=== PATIENT | female | born 1955 | race Two or more races ===

== ENCOUNTER 2020-10-02 08:24 | Outpatient (CLI) | payer OTHER | END 2020-10-02 23:59 | disposition home or self-care (01) | LOC: LAB 08:24 | PROVIDERS: ATTEND Specialist | DX: Z01.812 Encounter for preprocedural laboratory examination (principal); Z20.822 Contact with and (suspected) exposure to COVID-19 | CPT/HCPCS: C9803; U0003 ==

== ENCOUNTER 2020-10-08 05:16 | Inpatient (IN) | payer OTHER ==
[~2020-10-08] VITALS: Ht 157.5 cm; Wt 122.5 kg
[2020-10-08 06:00] VITALS: BP 140/66
[2020-10-08] MEDS ORDERED: ANESTHESIA TRAY IN PYXIS 1 EA TRAY MC ONE (06:03)
[2020-10-08] MEDS ORDERED: BUPIVACAINE 0.25% 75 MG/30 ML VIAL ONE (06:03)
[2020-10-08] MEDS ORDERED: BACITRACIN 50000 UNITS/VIAL ONE (06:04)
--- NOTE | 2020-10-08 06:20 | NUR ---
MS/RN NOTES PATIENT TRANSFERRED TO OR FOR RIGHT KNEE Sx. NO INJURIES DURING TRANSPORT.
[2020-10-08] MEDS ORDERED: FENTANYL PF 100MCG/2ML AMPUL ONE ×3 (06:37→08:55)
[2020-10-08] MEDS ORDERED: MIDAZOLAM HCL 2 MG/2ML VIAL ONE (06:37)
[2020-10-08] MEDS ORDERED: ROCURONIUM BROMIDE 50 MG/5 ML ONE (06:37)
--- NOTE | 2020-10-08 06:49 | NUR ---
MS/RN OPENING NOTES PATIENT ARRIVED TO UNIT FOR DAY Sx AT 0550 HRS. PATIENT AMBULATE BY SELF WITH WALKER. PATIENT IS ALERT AND ORIENTED X 4 THAI SPEAKING. PATIENTS BREATHING IS EVEN AND UNLABORED. NO SIGNS OF SOB OR RESPIRATORY DISTRESS NOTED. PATIENT STABLE ON ROOM AIR. NO PAIN AT THIS TIME. PATIENT KNOWS SHE IS GETTING RIGHT KNEE Sx. PATIENT SIGNED ALL CONSENT FORMS. PATIENT HAS BELONGINGS WITH HER. IV ACCESS STARTED ON LEFT FA 20G, INTACT FLUSHING WELL. SAFETY MEASURES ARE IN PLACE, BED IS LOCKED AND PLACED IN THE LOW POSITION, CALL LIGHT IS WITHIN REACH. OR ARRIVED TO TRANSFER PATIENT.
[2020-10-08] MEDS ORDERED: TRANEXAMIC ACID 3,000 MG in SODIUM CHLORIDE IRRIG SOLUTION 70 ML IR ONE (07:00)
[2020-10-08] MEDS ORDERED: BUPIVACAINE 0.5 % PF 150 MG/30 ML VIAL ONE (07:19)
--- NOTE | 2020-10-08 07:52 | NUR ---
MS RN OPENING NOTE PATIENT IS CURRENTLY IN SURGERY
[2020-10-08] MEDS ORDERED: HYDROMORPHONE 1 MG/1 ML DISP.SYRIN ONE ×2 (09:43→10:08)
--- NOTE | 2020-10-08 10:15 | NUR ---
RN NOTES INFORMED BY ODILIA, OR NURSE, THAT PATIENT IS CURRENTLY IN RECOVERY.
[2020-10-08 11:00] VITALS: BP 117/67
[2020-10-08] MEDS ORDERED: HYDROMORPHONE MDV 30 MG in IV NS 0.9% 15 ML, PCA TOTAL VOLUME 1 BAG IV PRN ×6 (11:00→12:30)
[2020-10-08] MEDS ORDERED: ACETAMINOPHEN 325 MG TABLET PO PRN ×2 (11:00)
[2020-10-08] MEDS ORDERED: SENNOSIDES 8.6 MG TABLET PO PRN (11:00)
[2020-10-08] MEDS ORDERED: NALOXONE HCL 0.4 MG/ML AMPUL IV PRN (11:00)
[2020-10-08] MEDS ORDERED: diphenhydrAMINE HCL 25 MG CAPSULE PO PRN (11:00)
[2020-10-08] MEDS ORDERED: MAG HYDROX/AL HYDROX/SIMETH 30 ML UDC PO PRN (11:00)
[2020-10-08] MEDS ORDERED: BISACODYL SUPP (10 MG) 10 MG/SUPP.RECT SUPP.RECT RC PRN (11:00)
[2020-10-08] MEDS ORDERED: ZOLPIDEM TARTRATE 5 MG TABLET PO PRN (11:00)
[2020-10-08] MEDS ORDERED: MENTHOL/CETYLPYRD (CEPACOL) 1 LOZ LOZENGE PO PRN (11:00)
[2020-10-08] MEDS ORDERED: CLONIDINE HCL 0.1 MG TABLET PO PRN (11:00)
[2020-10-08] MEDS: oxyCODONE IR immediate release 5 MG PO PRN ×2 (11:26→15:24)
[2020-10-08] MEDS: IV D5/0.45 NACL 1,000 ML IV PRN (11:27)
[2020-10-08] MEDS ORDERED: BUME2TAB7 PO (11:35)
[2020-10-08] MEDS ORDERED: BUME1TAB8 PO (11:35)
[2020-10-08] MEDS ORDERED: METO25TA20 PO (11:35)
[2020-10-08] MEDS ORDERED: ATOR40TA PO (11:35)
[2020-10-08] MEDS ORDERED: PANT20TA2 PO (11:35)
[2020-10-08] MEDS ORDERED: POTA20TA10 PO (11:35)
[2020-10-08] MEDS ORDERED: LEVO200T8 PO (11:35)
[2020-10-08 11:58] LABS: HEMOGLOBIN 12.4 g/dL (11.5-14.8)
--- NOTE | 2020-10-08 11:58 | NUR ---
RN NOTES DR. PABLO CALLED AND INFORMED ABOUT PATIENT'S CURRENT STATUS; WILL BE HERE TO SEE PATIENT LATER.
[2020-10-08] MEDS ORDERED: KEY,NONCONTROL,TO KEEP IN PYXI 1 EA MC ONE (12:43)
[2020-10-08] MEDS ORDERED: LEVOTHYROXINE SODIUM 100 MCG TABLET PO SCH (13:00)
[2020-10-08] MEDS: HYDROMORPHONE 1 MG/1 ML DISP.SYRIN SQ PRN (13:26)
--- NOTE | 2020-10-08 15:53 | NUR ---
RN NOTES KAL MIDLINE INSERTED BY MITUL KAHN; PROCEDURE TOLERATED WELL BY PATIENT.
[2020-10-08] MEDS: ANCEF 1 GM/50 ML D5W IV SCH ×4 (15:54→22:36)
[2020-10-08 16:00] VITALS: BP 113/75
--- NOTE | 2020-10-08 16:13 | NUR ---
RN NOTES RECEIVED ORDER FROM DR. PABLO TO START HYDROMORPHONE CONCRETE PAVING SUPERVISOR W/ FOLLOWING PARAMETERS: CONCRETE PAVING SUPERVISOR DOSE 0.3MG, LOCKOUT INTERVAL 15MINS, 4-HOUR LIMIT OF 6MG. INSTRUCTIONS AND EDUCATION REGARDING PURPOSE OF CONCRETE PAVING SUPERVISOR PUMP AND USE OF CONCRETE PAVING SUPERVISOR BUTTON PROVIDED TO PATIENT W/ REINFORCEMENT PROVIDED BY SLOVAK-SPEAKING STAFF CYNTHIA MORRISSEY. PATIENT VERBALIZED UNDERSTANDING OF 15-MIN LOCKOUT AND 4-HOUR DOSE LIMIT AND GAVE RETURN DEMONSTRATION OF CONCRETE PAVING SUPERVISOR BUTTON USE. WILL CONTINUE TO MONITOR.
--- NOTE | 2020-10-08 16:31 | NUR ---
RN NOTES PRINTING AND STAMPING SUPERVISOR INITIATED; WILL CONTINUE TO MONITOR.
[2020-10-08] MEDS ORDERED: METOPROLOL TARTRATE 25 MG TABLET PO SCH (17:00)
[2020-10-08] MEDS: POTASSIUM CHLORIDE 20 MEQ TAB.PRT.SR PO SCH (17:34)
[2020-10-08] MEDS: DOCUSATE SODIUM 100 MG CAPSULE PO SCH (17:36)
--- NOTE | 2020-10-08 18:55 | NUR ---
MS/RN CLOSING NOTES PATIENT ARRIVED TO UNIT FOR DAY Sx AT 0550 HRS. PATIENT IS ALERT AND ORIENTED X 4 UPPER SORBIAN SPEAKING. PATIENTS BREATHING IS EVEN AND UNLABORED. NO SIGNS OF SOB OR RESPIRATORY DISTRESS NOTED. PATIENT STABLE ON ROOM AIR. NO PAIN AT THIS TIME. PATIENT QUARTER FOLDER MACHINE SETUP FOR PAIN MANAGEMENT. INCENTIVE SPIROMETRY ENCOURAGED SAFETY MEASURES ARE IN PLACE, BED IS LOCKED AND PLACED IN THE LOW POSITION, CALL LIGHT IS WITHIN REACH.
[2020-10-08 20:00] VITALS: BP 130/63
--- NOTE | 2020-10-08 20:00 | NUR ---
MSRN FULLY AWAKE, ON THE PHONE WITH SON, OMANI SPEAKING, SPOKE TO SON, PLAN OF CARE AND MEDICATION REGIMEN DISCUSS TO SON TRANSLATED IN OMANI TO PT. PRESENT IVF INFUSING WELL, WITH DELIVERY TRUCK DRIVER. SURGICAL SITE DRESSING D/I. REMINDED TO CALL STAFF FOR ANY ASSISTANCE OR FURTHER DISCOMFORTS. HAVE SON TRANSLATE IN OMANI IMPORTANCE NEED TO HAVE PHYSICAL THERAPY TOMORROW WHICH PATIENT AGREED. NO OTHER NEEDS AT THIS TIME, CLOSELY WATCHED.
[2020-10-08] MEDS: METOPROLOL TARTRATE 25 MG TABLET PO SCH (22:36)
[2020-10-08] MEDS: PANTOPRAZOLE 40 MG TABLET.DR PO SCH (22:39)
--- NOTE | 2020-10-08 23:20 | NUR ---
MSRN RIGHT LEG REPOSITIONED PER PATIENTS' COMFORT. HEELS OFFLOAD MATTRESS. NO OTHER NEEDS MADE, CONTINUED
[2020-10-09] MEDS: IV D5/0.45 NACL 1,000 ML IV PRN (02:50)
--- NOTE | 2020-10-09 03:00 | NUR ---
MSRN AWAKENED, PRESENT IVF INFUSING WELL. OFFERED OXY IR. PER TRANSLATION, PATIENT WILL TAKE OXY PRIOR TO PHYSICAL THERAPY. PAINFUL ONLY WHEN MOVING, OTHERWISE MARRIAGE COUNSELOR CONTINUED.
--- NOTE | 2020-10-09 06:50 | NUR ---
MSRN REMAINS UNCHANGED.
--- NOTE | 2020-10-09 07:50 | NUR ---
MS/RN CLOSING NOTES PATIENT IS ALERT AND ORIENTED X 4 SLOVENIAN SPEAKING. PATIENTS BREATHING IS EVEN AND UNLABORED. NO SIGNS OF SOB OR RESPIRATORY DISTRESS NOTED. PATIENT STABLE ON ROOM AIR. NO PAIN AT THIS TIME. PATIENT PLASTER FORM MAKER MACHINE SETUP FOR PAIN MANAGEMENT. INCENTIVE SPIROMETRY ENCOURAGED SAFETY MEASURES ARE IN PLACE, BED IS LOCKED AND PLACED IN THE LOW POSITION, CALL LIGHT IS WITHIN REACH. Addendum: 10/09/20 at 0751 by MILADYS EISENBERG RN MSRN *OPENING*
[2020-10-09] MEDS: oxyCODONE IR immediate release 5 MG PO PRN (08:23)
--- NOTE | 2020-10-09 08:24 | NUR ---
MSRN NOTES GAVE PATIENT OXYCODONE HCL FOR PAIN 10MG PRIOR TO PHYSICAL THERAPY
[2020-10-09] MEDS: ASPIRIN 325 MG TABLET PO SCH (09:32)
[2020-10-09] MEDS: POTASSIUM CHLORIDE 20 MEQ TAB.PRT.SR PO SCH ×2 (09:33→16:18)
[2020-10-09] MEDS: DOCUSATE SODIUM 100 MG CAPSULE PO SCH ×2 (09:33→16:18)
[2020-10-09] MEDS: METOPROLOL TARTRATE 25 MG TABLET PO SCH ×2 (09:34→21:00)
[2020-10-09] MEDS: BUMETANIDE (1 MG) 1 MG TABLET PO SCH ×2 (09:34→12:08)
[2020-10-09] MEDS: ATORVASTATIN 40 MG TABLET PO SCH (09:34)
[2020-10-09] MEDS: LEVOTHYROXINE SODIUM 112 MCG TABLET PO SCH (09:35)
--- NOTE | 2020-10-09 16:30 | NUR ---
SS Consult: SS Consult requested for Safe discharge planning. The pt. is a 65-year old female at [facility] for knee surgery, per pt. MALINA met with pt. bedside. The pt. is A&O X 4 and appears well-groomed. The pt.s thought process sis WNL and made appropriate eye contact. The pt. has skin discoloration and dry skin in both arms. The patient stated she required knew surgery following a fall at her place of employment, [employer] on 03/16/2019. Per pt. she currently lives alone at [address] [place] [address] . Per pt. she has a caregiver, Roxana Connolly [phone] who cares for her 5 x/week from 9am 2 pm. Per pt. she receives $750 from SSDI and $230 from supplemental SS. Pt. denies Hx. of drug or alcohol use. Pt. denies Hx. of mental health illness. Pt. denies current SI/HI and denies hallucinations. Case Management to follow up with D/C planning (possible D/C to ARU). MALINA provided pt. with the following Senior resources and patient was receptive: ABUSE PREVENTION: ELDER ABUSE HOTLINE (16/02) ADULT PROTECTIVE SERVICES HOTLINE LONG-TERM CARE [facility] Region AREA ON AGING (HOTLINE) ADULT DAY HEALTH CARE CARE CENTERS: Private pay or [facility] funded adult day care [place] [facility] [place] Adult [place] , [facility] , [facility] , [facility] Care , [facility] Adult [facility] Health Care , [facility] , [place] ONE [facility] , [place] Jyoti [facility] Adult [place] , [place] ALZHEIMERS DISEASE/DEMENTIA: Alzheimers Association [facility]pl[facility] Chapter www.alz.org/[facility] Department of Aging www.lacity.org Family Caregiver Gay www.caregiver.org [place] Caregiver Resources Center/Family Support www.losangenew [facility].org CANCER RESOURCES: Citizen Of [place] Cancer Society www.cancer.org Cancer Support Community www.CancerSupportVvsb.org: CancerCare www.cancercare.org [facility] Cancer Support [place] www.[facility].org CRITICAL ACCESS HOSPITAL HEALTH ASSOCIATIONS: AARP www.aarp.org ALS Association (ask for Karen) www.als.org Citizen Of [place] Diabetes Association www.diabetes.org Citizen Of [place] Heart Association www.heart.org Citizen Of [place] Lung Association www.lungusa.org Citizen Of [place] Parkinson Disease Association www.apdaparkinson.org Citizen Of [place] Haughton , www.redcross.org Arthritis Foundation www.arthritis.org Crohns & Colitis Foundation of Citizen Of [place] www.ccfa.org/chapters/meng National Multiple Sclerosis Society www.nationalmssociety.org Myasthenia Gravis Foundation www.myasthenia-ca.org National Stroke Association www.stroke.org CONSERVATORSHIP & GUARDIANSHIP: AARP [place] Legal Services Center for Health Care Rights [place] Information and Referral Biological Photographer [facility], [place] [facility]: [facility] Bar Referral Service [facility] Neighborhood Legal Services Office of the Public Guardian [place] GRIEF AND BEREAVEMENT RESOURCES: [facility] [place] , [facility] THE [facility] , [facility] , [place] HELP AT HOME CAREGIVER SUPPORT: In Home Support Services (Must have Medi-Calixto to be eligible) *Ask for a list of agencies that provide services to assist with care in the home. Local Senior Centers also have listings of care providers. HOME SAFETY MODIFICATIONS AND EQUIPMENT: Senior centers have additional referrals. [place] The [employer] and Community Investment Dept. Handyworker Program (low income) or Visit http://hcidla.evergreenhealthity.org/glx-pekued-on for more information National Seating and Mobility and/or ; Forever Active www.foreveractivemed.[employer] Stay Home Safe www.Stayhomesafe.com LIFE ALERT RESPONSE SYSTEM: [facility] Lifeline Services 390-157-6332 www. LifeSocialDiabetesys.[employer] Life Alert 797-800-1054 www.lifealert.[employer] Life Station 310-140-0348 www.lifestation.com Safe Return 389-412-7551 www.alz.or/safereturn Cell Phones for Seniors www.dianboom MEALS AND FOOD PROGRAMS: [employer] Meals on Wheels [phone] [place] Meals on Wheels [phone] [facility] [phone] [place] to the Homebound [phone] [place] to the Homebound [phone] [place] to the Homebound [phone] [facility] to the Homebound [phone] [facility] Center[facility] [phone] [facility] [phone] ONE Generation [phone] [facility] [phone] [facility] [phone] Meals on Wheels [phone] For all ages: $6.85/ meal w side. Delivered M-F from 10 am-1pm. Application and payment is done over the phone. Frozen meals available for weekends. Emergency Food [facility] [phone] [facility] Mortgage Underwriter [phone] [facility] [phone] [facility]- [facility] bag lunches [phone] [facility] [phone] MEAL/GROCERY DELIVERY PROGRAMS: [facility] Gourmet Meals [phone]- [facility] [phone]- [facility] Magic Kitchen [phone] Moms Meals [phone] (ask Lopez for Discount Select grocery stores may provide delivery. MEDICAL INSURANCE SUPPORT SERVICES: Center for Health Care Rights [phone] Health Insurance Counseling/Advocacy Programs (HICAP)-Must have Medicare. Offers counseling for Medi-Calixto eligibility [phone] Department of Public Mortgage Underwriter [phone] www.[facility].ca.gov Medicare 757-864-7647 www.socialsecurity.org Social Security [phone] SENIOR ACTIVITY PROGRAMS: *Contact a local senior center, adult school, recreation facility or community college for education, fitness, recreation, and social programs. Aquatic Therapy and Adapted Exercise programs through [facility] [phone] [facility] at [facility] [phone] www.[facility]/encore H2U- Senior Friends [phone] [place] Senior Programs [phone] www.oasisnet.org Suddenly 65 www.qhmffaan19.com SENIOR CENTERS: [facility] [phone] [facility] Hospital[facility] [phone] [facility] [phone] [facility] HospitalJulio Rippey [phone] [facility] [phone] [facility] [phone] [facility] [phone] [facility] [phone] One GenerationMoisés [facility] [phone] [facility] [phone] [facility] [phone] [facility] [phone] [facility] [phone] TRANSPORTATION: Local [facility] may have applications for transportation programs and additional resources. ACCESS Services [phone] Transportation for seniors and disabled persons 7 days a week requiring 254 hr. advance reservation. Must apply and register for program zee eligible. SiVerion [phone] or [phone] Transportation for seniors and persons with ADA card/metro disabled card in the [facility]. M-F only. Must register for services. ONE GENERATION [phone] Serves 65 years + in conjunction with SoupQubes program. Must be registered with both programs. A to B Transport [phone] Provides wheelchair/gurney van service. Adult Medical Transport [phone] Accepts [facility] with prior authorization. [facility] [phone] Provides wheelchair Transport. [facility] Wide Transportation [phone] [facility] [phone] Gurney Transport. [facility] Transportation [phone] wheelchair & gurney transport D Transportation [phone] wheelchair & gurney transport [place] Non-Emergency Transport [phone] wheelchair & gurney transport [facility] [phone] Short Term Transportation primarily for adults with disabilities on social security income. Nominal fee may apply and a reservation is required. MagForce [phone] or [phone] SocialDiabetes [phone] [place], [place] [phone] For additional programs & services
--- NOTE | 2020-10-09 18:53 | NUR ---
MS/RN CLOSING NOTES PATIENT IS ALERT AND ORIENTED X 4 ICELANDIC SPEAKING. PATIENTS BREATHING IS EVEN AND UNLABORED. NO SIGNS OF SOB OR RESPIRATORY DISTRESS NOTED. PATIENT STABLE ON ROOM AIR. NO PAIN AT THIS TIME. PATIENT ELECTROMECHANICAL INSPECTOR MACHINE SETUP FOR PAIN MANAGEMENT. INCENTIVE SPIROMETRY ENCOURAGED SAFETY MEASURES ARE IN PLACE, BED IS LOCKED AND PLACED IN THE LOW POSITION, CALL LIGHT IS WITHIN REACH.
--- NOTE | 2020-10-09 19:40 | NUR ---
MSRN SEEN BY DR. ALVARADO, PA FOR DR. PATTERSON. DRESSING TO BE CHANGE TOMORROW BY PA. PATIENT STATED ABLE TO TOLERATE 35 DEGREES ON CPM. ABLE TO STAND ONLY NOT WALKING YET SEC TO POST OP PAIN. KNEE IMMOBILIZER ADJUSTED PER COMFORT. HEELS OFFLOAD MATTRESS . ALL NEEDS ATTENDED. LATE DINNER SERVED.
[2020-10-09 20:00] VITALS: BP 116/56
--- NOTE | 2020-10-09 21:15 | NUR ---
MSRN RESEARCH GENETICIST DISCONTINUED ORDERED. WILL ADMINISTER SQ OR PO PAIN MED PREVIOUSLY ORDERED NEEDED.
[2020-10-09] MEDS: PANTOPRAZOLE 40 MG TABLET.DR PO SCH (22:47)
[2020-10-09] MEDS ORDERED: KEY,NONCONTROL,TO KEEP IN PYXI 1 EA MC ONE ×2 (23:07→23:41)
[2020-10-09] MEDS: HYDROMORPHONE 1 MG/1 ML DISP.SYRIN SQ PRN (23:11)
--- NOTE | 2020-10-09 23:45 | NUR ---
MSRN LESS POST OP PAIN AFTER 1MG DILAUDED SQ WAS GIVEN. INCREASING PAIN ONLY WHEN OPERATIVE LEG MOVED. KEPT COMFORTABLE
--- NOTE | 2020-10-10 05:00 | NUR ---
MSRN SLEEPING. APPEARS COMFORTABLE.
[2020-10-10] MEDS: oxyCODONE IR immediate release 5 MG PO PRN ×3 (05:34→20:28)
--- NOTE | 2020-10-10 05:34 | NUR ---
MSRN AWAKENED, POST OP PAIN RIGHT KNEE LEVEL 7, OXY 10 MG PO ADMINISTERED.. REPOSITIONED.
[2020-10-10 06:59] LABS: BASOPHILS # (AUTO) 0.1 /CMM (0.0-0.2); BASOPHILS % (AUTO) 0.5 % (0.0-2.0); EOSINOPHILS % (AUTO) 1.7 % (0.0-6.0); HEMATOCRIT 25 % (33-45); HEMOGLOBIN 8.5 g/dL (11.5-14.8); LYMPHOCYTES # (AUTO) 1.6 /CMM (0.8-4.8); LYMPHOCYTES % (AUTO) 17.6 % (20.0-44.0); MEAN CORPUSCULAR HGB CONC 35 g/dl (31.0-36.0); MEAN CORPUSCULAR VOLUME 93 fL (82-100); MONOCYTES # (AUTO) 0.7 /CMM (0.1-1.30); MONOCYTES % (AUTO) 7.4 % (2.0-12.0); NEUTROPHILS # (AUTO) 6.8 /CMM (1.8-8.9); NEUTROPHILS % (AUTO) 72.8 % (43.0-81.0); PLATELET COUNT (AUTO) 131 /CMM (150-450); RED BLOOD CELL COUNT(AUTO) 2.67 MIL/uL (4.0-5.2); WHITE BLOOD COUNT (AUTO) 9.3 K/uL (4.3-11.0)
--- NOTE | 2020-10-10 07:05 | NUR ---
MSRN RECEIVED CALL FROM LAB, K LEVEL WAS 2.7. ENDORSED TO INCOMING RN
[2020-10-10 07:16] LABS: CALCIUM, SERUM 8.1 mg/dL (8.5-10.1); CREATININE 0.7 mg/dL (0.6-1.3); MAGNESIUM 1.5 mg/dL (1.8-2.4); PHOSPHORUS 3.1 mg/dL (2.5-4.9)
[2020-10-10 07:20] LABS: POTASSIUM 2.7 mmol/L (3.5-5.1)
--- NOTE | 2020-10-10 07:30 | NUR ---
PT RECEIVED RESTING COMFORTABLY IN BED. NO S/S OR C/O PAIN OR DISTRESS NOTED. SIDE RAILS UP X2, CALL LIGHT LEFT WITHIN REACH. WILL CONTINUE PLAN OF CARE.
[2020-10-10] MEDS: ATORVASTATIN 40 MG TABLET PO SCH (08:45)
[2020-10-10] MEDS: METOPROLOL TARTRATE 25 MG TABLET PO SCH ×2 (08:45→20:32)
[2020-10-10] MEDS: ASPIRIN 325 MG TABLET PO SCH (08:45)
[2020-10-10] MEDS: DOCUSATE SODIUM 100 MG CAPSULE PO SCH ×2 (08:46→16:38)
[2020-10-10] MEDS: LEVOTHYROXINE SODIUM 112 MCG TABLET PO SCH (08:46)
[2020-10-10] MEDS: POTASSIUM CHLORIDE 20 MEQ TAB.PRT.SR PO SCH ×2 (08:46→17:00)
[2020-10-10] MEDS: ONDANSETRON HCL/PF 4 MG/2 ML VIAL IV PRN (08:47)
[2020-10-10] MEDS: BUMETANIDE (1 MG) 1 MG TABLET PO SCH ×2 (08:47→12:57)
[2020-10-10] MEDS: HYDROMORPHONE 1 MG/1 ML DISP.SYRIN SQ PRN (08:48)
[2020-10-10 10:00] VITALS: BP 170/86
[2020-10-10 11:15] LABS: BASOPHILS # (AUTO) 0.1 /CMM (0.0-0.2); BASOPHILS % (AUTO) 0.9 % (0.0-2.0); EOSINOPHILS % (AUTO) 1.9 % (0.0-6.0); HEMATOCRIT 26 % (33-45); HEMOGLOBIN 8.7 g/dL (11.5-14.8); LYMPHOCYTES # (AUTO) 2.4 /CMM (0.8-4.8); LYMPHOCYTES % (AUTO) 20.8 % (20.0-44.0); MEAN CORPUSCULAR HGB CONC 33 g/dl (31.0-36.0); MEAN CORPUSCULAR VOLUME 94 fL (82-100); MONOCYTES # (AUTO) 0.9 /CMM (0.1-1.30); MONOCYTES % (AUTO) 7.6 % (2.0-12.0); NEUTROPHILS # (AUTO) 7.9 /CMM (1.8-8.9); NEUTROPHILS % (AUTO) 68.8 % (43.0-81.0); PLATELET COUNT (AUTO) 156 /CMM (150-450); WHITE BLOOD COUNT (AUTO) 11.4 K/uL (4.3-11.0)
[2020-10-10 11:24] LABS: CALCIUM, SERUM 8.2 mg/dL (8.5-10.1); CREATININE 0.9 mg/dL (0.6-1.3); POTASSIUM 3.1 mmol/L (3.5-5.1)
[2020-10-10 11:32] LABS: MAGNESIUM 1.6 mg/dL (1.8-2.4); PHOSPHORUS 2.8 mg/dL (2.5-4.9)
[2020-10-10] MEDS: Magnesium 1GM/D5W 100ML PREMIX 100 ML IV SCH ×2 (11:55→12:59)
[2020-10-10] MEDS ORDERED: POTASSIUM CHLORIDE 20 MEQ TAB.PRT.SR PO ONE (16:30)
[2020-10-10] MEDS: MUPIROCIN OINT 2% 22 GM TUBE NS SCH ×2 (16:38→20:32)
--- NOTE | 2020-10-10 18:46 | NUR ---
CHANGE OF SHIFT REPORT PT RESTING COMFORTABLY IN BED. NO S/S OR C/O PAIN OR DISTRESS NOTED. SIDERAILS UP X2, CALL LIGHT LEFT WITHIN REACH. PT KEPT CLEAN, DRY, AND COMFORTABLE. NO SIGNIFICANT CHANGES SINCE PREVIOUS SHIFT. WILL GIVE REPORT TO BENNETT PALUMBO.
--- NOTE | 2020-10-10 19:45 | NUR ---
MS/RN OPENING NOTE RECEIVED PATIENT RESTING IN BED. AWAKE, ALERT AND ORIENTED X 4. ABLE TO MAKE NEEDS KNOWN. NO COMPLAINTS OF PAIN AT THIS TIME. IV ACCESS TO RIGHT UPPER ARM INTACT AND PATENT. CONTINUES ON REGULAR DIET WITH SNACKS PROVIDED. CALL LIGHT WITHIN REACH. ASPIRATION, FALL AND SAFETY PRECAUTIONS MAINTAINED. WILL CONTINUE TO MONITOR.
[2020-10-10 20:36] VITALS: BP 110/62
--- NOTE | 2020-10-10 20:45 | NUR ---
MS/RN NOTE PATIENT WITH COMPLAINTS OF RIGHT KNEE PAIN 01/03. GIVEN PRN OXYCODONE WITH PENDING EFFECT. HR RECHECKED D/T HIGH VALUE AT 1999. HR AT THIS TIME IS 100. NO SIGNS OR SYMPTOMS OF RESPIRATORY DISTRESS NOTED. WILL CONTINUE TO MONITOR.
[2020-10-10] MEDS: PANTOPRAZOLE 40 MG TABLET.DR PO SCH (21:06)
--- NOTE | 2020-10-10 21:43 | NUR ---
spooling supervisor initial notes received report from another for continuity of care. Seen pt in bed awake and alert watching tv at this time. per pt pain relieved after pain medication given . No signs of any distress noted. Right knee dressing dry and intact. kept her warm and comfortable at all times. reposition her for comfort. place call light at reach. will continue monitoring.
[2020-10-11] VITALS (9 sets, daily range): BP systolic 96–117; BP diastolic 44–75
[2020-10-11] MEDS: ONDANSETRON HCL/PF 4 MG/2 ML VIAL IV PRN (05:47)
--- NOTE | 2020-10-11 05:56 | NUR ---
manager procurement notes after sponges bath done patient feeling nauseated, Zofran administered by another nurse roosevelt IVP as ordered. kept her HOB elevated and kept her warm and comfortable at all times. place call light at reach. will continue monitoring.
--- NOTE | 2020-10-11 07:00 | NUR ---
MS OPENING NOTE RECEIVED PATIENT RESTING IN BED. AWAKE, ALERT AND ORIENTED X 4. ABLE TO MAKE NEEDS KNOWN. NO COMPLAINTS OF PAIN AT THIS TIME. IV ACCESS TO RIGHT UPPER ARM INTACT AND PATENT. CALL LIGHT WITHIN REACH. ASPIRATION, FALL AND SAFETY PRECAUTIONS MAINTAINED. WILL CONTINUE TO MONITOR.
[2020-10-11 07:02] LABS: BASOPHILS % (AUTO) 0.6 % (0.0-2.0); EOSINOPHILS % (AUTO) 2.1 % (0.0-6.0); HEMATOCRIT 23 % (33-45); HEMOGLOBIN 7.8 g/dL (11.5-14.8); LYMPHOCYTES # (AUTO) 1.2 /CMM (0.8-4.8); LYMPHOCYTES % (AUTO) 17.5 % (20.0-44.0); MEAN CORPUSCULAR HGB CONC 34 g/dl (31.0-36.0); MEAN CORPUSCULAR VOLUME 93 fL (82-100); MONOCYTES # (AUTO) 0.5 /CMM (0.1-1.30); MONOCYTES % (AUTO) 7.3 % (2.0-12.0); NEUTROPHILS # (AUTO) 5.1 /CMM (1.8-8.9); NEUTROPHILS % (AUTO) 72.5 % (43.0-81.0); PLATELET COUNT (AUTO) 139 /CMM (150-450); RED BLOOD CELL COUNT(AUTO) 2.48 MIL/uL (4.0-5.2); WHITE BLOOD COUNT (AUTO) 7.1 K/uL (4.3-11.0)
--- NOTE | 2020-10-11 07:40 | NUR ---
ms cyber threat analyst closing notes pt resting at this time after zofran given , no signs of any distress noted. slept well and stable throughout the night. kept her warm and comfortable at all times. On semi fowlers position with side rails x2 up and bed in low and lock in position. bed alarm set for safety. endorse to am nurse Jocelyne for continuity of care. place call light at reach.
[2020-10-11] MEDS: METOPROLOL TARTRATE 25 MG TABLET PO SCH (09:00)
[2020-10-11] MEDS: DOCUSATE SODIUM 100 MG CAPSULE PO SCH ×2 (09:00→09:58)
[2020-10-11 09:14] LABS: CALCIUM, SERUM 8.6 mg/dL (8.5-10.1); CREATININE 0.8 mg/dL (0.6-1.3); POTASSIUM 2.9 mmol/L (3.5-5.1)
[2020-10-11] MEDS: ASPIRIN 325 MG TABLET PO SCH (09:56)
[2020-10-11] MEDS: ATORVASTATIN 40 MG TABLET PO SCH (09:56)
[2020-10-11] MEDS: POTASSIUM CHLORIDE 20 MEQ TAB.PRT.SR PO SCH ×2 (09:57→17:04)
[2020-10-11] MEDS: LEVOTHYROXINE SODIUM 112 MCG TABLET PO SCH (09:58)
[2020-10-11] MEDS: BUMETANIDE (1 MG) 1 MG TABLET PO SCH ×2 (09:58→12:32)
--- NOTE | 2020-10-11 10:06 | NUR ---
MS NURSING NOTES LOPRESOR HELD. BP 105/56, PULSE 89.
[2020-10-11] MEDS: MUPIROCIN OINT 2% 22 GM TUBE NS SCH (10:12)
[2020-10-11] MEDS: POTASSIUM CL. PREMIX PERIPHER. 50 ML IV SCH ×2 (10:34→11:26)
--- NOTE | 2020-10-11 10:35 | NUR ---
MS NURSING NOTES PT REFUSED ELEUTERIO
[2020-10-11] MEDS: HYDROMORPHONE 1 MG/1 ML DISP.SYRIN SQ PRN ×2 (10:57→21:05)
--- NOTE | 2020-10-11 11:28 | NUR ---
PT PENDING DISCHARGE FOR ARU, RECEIVED ORDERS FROM DR LANGE TO TRANSFUSE 1UNIT PRBC PRIOR TO DISCHARGE. ORDERS READ BACK AND ENTERED AT THIS TIME. NURSE MADE AWARE. WILL CONTINUE WITH PLAN OF CARE Addendum: 10/11/20 at 1130 by SABRA RAMIRES RN PT PENDING DISCHARGE TO ARU, RECEIVED ORDERS FROM DR LANGE TO TRANSFUSE 1UNIT PRBC PRIOR TO DISCHARGE. ORDERS READ BACK AND ENTERED AT THIS TIME. NURSE MADE AWARE. WILL CONTINUE WITH PLAN OF CARE
--- NOTE | 2020-10-11 11:55 | NUR ---
Patient noticed serous sanguineous fluid on post knee sx site, clean with NS, pat dry, and covered dry dressing followed by AC wrap. Picture taken.
--- NOTE | 2020-10-11 18:30 | NUR ---
RN Closing note Patient in bed, remains A O x 4, able to responds all stimuli. Patient discharge to [facility] and given report, also patient receiving RBC x 1 unit, no s/s of reaction observed, patient denies fever, skin rash or skin itchiness. Skin is warm to touch, keep clean/dry. Keep elevated HOB for ensure airway and aspiration precaution, also lowest bed position for safety. Call light within reach, will endorse to senior statistical programmer.
--- NOTE | 2020-10-11 19:00 | NUR ---
CHANGE REPORT CALLED [facility] 3RD FLOOR FOR DISCHARGE REPORT. REPORT GIVEN TO NURSE.
--- NOTE | 2020-10-11 20:26 | NUR ---
RN NOTES Patient in bed, remains A O x 4, able to responds all stimuli, also patient S/P RBC x 1 unit, no s/s of reaction observed, patient denies fever, skin rash or skin itchiness. Skin is warm to touch, keep clean/dry. Keep elevated HOB for ensure airway and aspiration precaution, also lowest bed position for safety. Call light within reach, will continue to monitor.
--- NOTE | 2020-10-11 21:12 | NUR ---
RN NOTES PT D/C TO [facility] PICKED UP BY 4 COAL FEEDER OPERATOR VIA CHELLE PT VITAL SIGNS STABLE PT STATED SHE WAS IN PAIN DILAUDID GIVEN FOR PAIN. PT ALERT X4 ALL NURSING NEEDS MET.
== END 2020-10-11 21:15 | DRG 470 ==
LOC: DS 05:16 → MED 05:18
PROVIDERS: ADMIT Student in an Organized Health Care Education/Training Program
PROC: 0SRC0J9 Replacement of Right Knee Joint with Synthetic Substitute, Cemented, Open Approach (ICD-10-PCS; principal; 2020-10-08)
PROC: 05H533Z Insertion of Infusion Device into Right Subclavian Vein, Percutaneous Approach (ICD-10-PCS; 2020-10-08)
PROC: B546ZZA Ultrasonography of Right Subclavian Vein, Guidance (ICD-10-PCS; 2020-10-08)
PROC: 30233N1 Transfusion of Nonautologous Red Blood Cells into Peripheral Vein, Percutaneous Approach (ICD-10-PCS; 2020-10-11)
DX: M17.11 Unilateral primary osteoarthritis, right knee (principal); Z68.42 Body mass index [BMI] 45.0-49.9, adult; I11.0 Hypertensive heart disease with heart failure; E03.9 Hypothyroidism, unspecified; I50.9 Heart failure, unspecified; E66.01 Morbid (severe) obesity due to excess calories; E87.6 Hypokalemia; I48.91 Unspecified atrial fibrillation; K21.9 Gastro-esophageal reflux disease without esophagitis; E78.00 Pure hypercholesterolemia, unspecified; M21.061 Valgus deformity, not elsewhere classified, right knee; D62 Acute posthemorrhagic anemia
CPT/HCPCS: 36415; 80048-TC; 83735-TC; 84100-TC; 85025-TC; 85027-TC; 86850-TC; 87081-TC; 88305-TC; 88311-TC; 97110-TC; 97112-TC; 97116-TC; 97530-TC; A4217; C1713; C1776; G0378; J0690; J1100; J1170; J2250; J2405; J3010; J3475; J3480; J3490; J7050; J7060; L1830; P9016-BL